=== PATIENT | female | born 1980 | race Hispanic/Latino ===

== ENCOUNTER 2017-03-18 10:17 | Inpatient (IN) | payer BC ==
[2017-03-18 11:36] LABS: Amnisure Test RUPTURE DETECTED (No Rupture)
[2017-03-18 11:41] VITALS: BMI 34.5
[2017-03-18] MEDS ORDERED: Ondansetron HCl/PF 4 MG/2 ML Vial IVP PRN (11:51)
[2017-03-18] MEDS ORDERED: Lidocaine 1% (PF) 30 ML VIAL SC PRN (11:51)
[2017-03-18] MEDS ORDERED: Promethazine HCl 25 MG/ML VIAL IM PRN (11:51)
[2017-03-18] MEDS ORDERED: Ibuprofen 800 MG TAB PO PRN (11:51)
[2017-03-18] MEDS ORDERED: LR / Pitocin 40 units/1000 ml 1,000 ML IV PRN (11:51)
[2017-03-18] MEDS ORDERED: Lactated Ringer's 1,000 ML IV SCH (12:00)
[2017-03-18] MEDS ORDERED: Penicillin G Potassium 5 MILL.UNITS in Sodium Chloride 0.9% 100 ML IVPB SCH (12:00)
[2017-03-18 12:08] LABS: Bilirubin Negative (Negative); Blood, Urine Negative (Negative); Glucose, Urine (Dipstick) Negative (Negative); Ketone, Urine 15 mg/dL (Negative); Nitrite Negative (Negative); Protein, Urine (Dipstick) Negative (Neg-Trace); Urobilinogen 0.2 mg/dL (0.2-1.0)
[2017-03-18 12:10] LABS: Bacteria/HPF None Seen HPF (None Seen); Hyaline Casts/LPF 0-3 HYALINE CAST LPF (0-3 Hyaline); RBC/HPF 0-3 HPF (0-3); Squamous Epithelial 0-3 HPF (0-3); WBC/HPF None Seen HPF (0-3)
[2017-03-18] MEDS ORDERED: Penicillin G Potassium 5 MILL.UNITS VIAL ONE ×2 (12:28→14:15)
--- NOTE | 2017-03-18 12:46 | PDOC.LDHP ---
Labor and Delivery H&P Chief complaint: loss of fluid HPI: Pt is a 36yo G1 @ 37.5 weeks who presents w PROM today at home. Current gestational age (weeks): 37 Due date: 04/03/17 Grav: 1 Para: 0 OB History Details: transfer of care at 31 weeks Current complications: none Abnormal US findings: No Current medications: none Previous surgical history: none Allergies/Adverse Reactions: Allergies Allergy/AdvReac Type Severity Reaction Status Date / Time No Known Allergies Allergy Verified 03/18/17 11:31 Social history: none - Physical Exam Vital signs reviewed and normal: yes General: resting Heart: RRR Lungs: nonlabored breathing Abdomen: gravid Extremeties: trace edema FHT: category 1 - Vaginal Exam cm dilated: 0 Effacement: 0% - OB Labs Blood type: A RH: negative Antibody Screen: negative HIV: negative RPR: negative HEPSAg: negative 1 hour GCT: positive 3 hour GTT: negative GBS: positive Rubella: immune - Assessment L&D Assessment: term rupture in membranes - Plan Plan: admit to L&D, cervical ripening, labor augmentation if indicated, GBS antibiotic prophylaxis, informed consent obtained, anesthesia consult for pain management -: A/P: 36yo G1 @ 37.5 w PROM, cytotec for cervical ripening/induction of labor. PCN ordered for GBS prophylaxis. FHT reassuring.
[2017-03-18] MEDS: Lactated Ringer's 1,000 ML IV SCH ×2 (13:15→23:10)
[2017-03-18 14:20] LABS: Hematocrit 35.7 % (36.0-47.0); Mean Platelet Volume 7.5 fL (7.4-10.4); Red Blood Cell (RBC) Count 3.65 mill/uL (4.20-5.40)
[2017-03-18] MEDS: Misoprostol 100 MCG TAB VAG SCH ×3 (14:30→21:00)
--- NOTE | 2017-03-18 16:48 | PDOC.LDPN ---
Labor & Delivery Progress Note - Subjective Subjective: comfortable - Objective Vital signs reviewed and normal: yes Abnormal vital signs: BP 140/76 noted General: resting FHT: category 1 - Assessment (1) 37 weeks gestation of Code(s): Z3A.37 - 37 WEEKS GESTATION OF Current Visit: Yes Status : Acute (2) Premature rupture of membranes Code(s): O42.90 - ANTON ROM, 7TH0 BETW RUPT & ONST LABR, UNSP WEEKS OF GEST Current Visit: Yes Status: Acute Plan: continue plan of care -: A/P: sp cytotec x 1 50mcg for PROM< plan to repeat soon for IOL.
[2017-03-18] MEDS: Penicillin G 2.5 MILL.units 2.5 MILL.UNITS in Premix Bag 1 BAG IVPB SCH ×3 (17:47→22:12)
[2017-03-19] MEDS ORDERED: LR 500 ML/Oxytocin 10 units 500 ML IV SCH ×2 (00:30→07:53)
[2017-03-19] MEDS: Penicillin G 2.5 MILL.units 2.5 MILL.UNITS in Premix Bag 1 BAG IVPB SCH ×4 (02:13→11:59)
[2017-03-19 06:53] LABS: Amnisure Test No Membranes Rupture (No Rupture)
[2017-03-19] MEDS: Lactated Ringer's 1,000 ML IV SCH ×3 (08:19→14:12)
--- NOTE | 2017-03-19 09:56 | ULT ---
BIOPHYSICAL PROFILE: Date: 03/19/17 HISTORY: Assess well-being. FINDINGS/IMPRESSION: There is a single, viable intrauterine . Tone: 2 Breathin Movement: 2 Amniotic Fluid: 2 Total Score: 8/8 heart rate: 128 beats/minute. position: Vertex. Placenta: Anterior. Amniotic fluid index: 18.1 cm. POS: [facility]
--- NOTE | 2017-03-19 10:04 | PDOC.EVN ---
Event Note - Event Note Event Note: HD2 Hospital course: pt was admitted yesterday w reported ROM at home, amnisure was positive, pt with closed cervix. Pt received 3 doses of cytotec as well as pitocin ordered overnight by [facility]. No fluid was noted yesterday during admission and an amnisure was ordered overnight and reported negative. This AM I did a speculum exam with a closed and long cervix, no pooling and negative ferning on slide I reviewed in the lab. Amnisure was repeated and is pending. While awaiting amnisure results the pt called out to RN that she started leaking again. RN reports a puddle on peripad and noting amniotic fluid actively leaking from the vagina, not the urethra. S: cramping, good FM O: VS WNL NAD Fundus NTTP FHT cat 1 [place] no ctx SVE closed A/P; Pt is approx 24 hrs w ROM, GBS + w abx, will receive one more dose of cytotec. If no initiation of labor with 4th dose/closed cervix will recommend CS for failed IOL with over 24 hours of ROM and 24hrs of cervical ripening. Cont PCN for GBS.
[2017-03-19 10:20] LABS: Amnisure Test No Membranes Rupture (No Rupture)
[2017-03-19] MEDS ORDERED: Misoprostol 100 MCG TAB ONE (11:27)
[2017-03-19] MEDS ORDERED: Misoprostol 100 MCG TAB PO SCH (11:30)
--- NOTE | 2017-03-19 11:32 | PDOC.LDPN ---
Labor & Delivery Progress Note - Subjective Subjective: comfortable - Objective Vital signs reviewed and normal: yes General: resting Dilation: closed - Assessment (1) 37 weeks gestation of Code(s): Z3A.37 - 37 WEEKS GESTATION OF Current Visit: Yes Status : Acute (2) Premature rupture of membranes Code(s): O42.90 - ANTON ROM, 7TH0 BETW RUPT & ONST LABR, UNSP WEEKS OF GEST Current Visit: Yes Status: Acute Plan: continue plan of care -: A/P: prolonged ROM, on PCN for GBS prophylaxis. Giving 4th cytotec now, discussed w pt ROM > 24 hrs w 3 cytotec and pitocin, offered CS for failed IOL vs one more dose of cytotec. Pt desires one more cytotec and agrees w plan of care for CS if no labor after 4th cytotec. FHT w +accel noted w SVE, will continue to monitor closely.
[2017-03-19] MEDS ORDERED: CEFAZOLIN/Water 2 GM/20 ML SYRINGE ONE (13:57)
[2017-03-19] MEDS ORDERED: Bicitra 30 ML UDCUP ONE (13:57)
--- NOTE | 2017-03-19 14:05 | PDOC.LDPN ---
Labor & Delivery Progress Note - Subjective Subjective: painful contractions, other (no PIH sx) - Objective Abnormal vital signs: mild range BP General: breathing through contractions Dilation: closed FHT: category 1 [place] contractions every: 2-3 mins - Assessment (1) 37 weeks gestation of Code(s): Z3A.37 - 37 WEEKS GESTATION OF Current Visit: Yes Status : Acute (2) Premature rupture of membranes Code(s): O42.90 - ANTON ROM, 7TH0 BETW RUPT & ONST LABR, UNSP WEEKS OF GEST Current Visit: Yes Status: Acute (3) Failed induction of labor Code(s): O61.9 - FAILED INDUCTION OF LABOR, UNSPECIFIED Current Visit: Yes Status: Acute Plan: other -: A/P: HD2 IOL for PROM, now >24 hrs ruptured w cervical ripening and cervix remains closed despite painful contractions and continued LOF. Discussed indication for primary CS, pt agrees to plan of care.
[2017-03-19] MEDS ORDERED: Ropivacaine 0.2% 550 ML 750 ML NERVE BLCK SCH (14:15)
[2017-03-19] MEDS ORDERED: Ropivacaine HCl/PF 750 ML in Premix Bag 1 BAG NERVE BLCK SCH (14:15)
[2017-03-19] MEDS ORDERED: CEFAZOLIN/Water 2 GM/20 ML SYRINGE SLOW IVP SCH (14:15)
[2017-03-19] MEDS ORDERED: Bicitra 30 ML UDCUP PO SCH (14:15)
[2017-03-19] MEDS ORDERED: Morphine PF 1 MG/ML SYR ONE (14:18)
[2017-03-19] MEDS ORDERED: Oxytocin 10 UNITS/ML VIAL ONE (14:19)
[2017-03-19] MEDS ORDERED: ePHEDrine/0.9% NaCl/PF SYRINGE 50 mg/10 ml ONE (14:19)
[2017-03-19] MEDS ORDERED: Fentanyl 100 MCG/2 ML VIAL ONE (14:19)
[2017-03-19] MEDS ORDERED: PHENYLEPHRINE-NS 100 MCG/ML 10 ML SYRINGE ONE (14:25)
[2017-03-19] MEDS ORDERED: Ondansetron HCl/PF 4 MG/2 ML Vial ONE (14:25)
[2017-03-19] MEDS ORDERED: Dexamethasone 4 mg/ml Vial ONE (14:25)
[2017-03-19] MEDS ORDERED: Ketorolac Tromethamine 30 MG/ML VIAL ONE ×2 (14:25→14:51)
[2017-03-19] MEDS ORDERED: Dexamethasone 20 MG/5 ML VIAL ONE (14:51)
[2017-03-19] MEDS ORDERED: Bupivacaine 0.25% HCL 30 ML VIAL ONE (15:08)
--- NOTE | 2017-03-19 15:21 | PDOC.OPDEL ---
OB Operative/Delivery Note Delivery Dr/Surgeon: Marshal Assist: Mark Pre-Delivery Diagnosis: ruptured membrane Procedure/Post Delivery Dx: primary low transverse CS (and placement of OnQ nerve block) Weeks gestation: 37 Anesthesia: spinal - Findings A Sex: female Weight: 6 lb 13 oz - 1 min: 8 - 5 min: 9 - Additional Findings/Plan findings: low transverse hysterotomy without extension, normal uterus, normal tubes, normal ovaries Estimated blood loss: 600ml Compilations/Other Findings: none Post delivery plan: routine recovery
[2017-03-19] MEDS ORDERED: Ondansetron HCl/PF 4 MG/2 ML Vial IVP PRN ×2 (18:52→19:52)
[2017-03-19] MEDS ORDERED: Promethazine HCl 25 MG/ML VIAL IM PRN ×2 (18:52→19:52)
[2017-03-19] MEDS ORDERED: diphenhydrAMINE 25 MG CAP PO PRN (18:52)
[2017-03-19] MEDS ORDERED: Acetaminophen/Codeine 30-300mg Tablet PO PRN ×2 (18:52)
[2017-03-19] MEDS ORDERED: Simethicone Chewable 80 MG TAB PO PRN (18:52)
[2017-03-19] MEDS ORDERED: Lanolin Ointment 7 GM TUBE TOP PRN (18:52)
[2017-03-19] MEDS ORDERED: Adacel (T-DAP) 0.5 ML VIAL IM ONE (18:52)
[2017-03-19] MEDS ORDERED: Bisacodyl 10 MG SUPP PR PRN (18:52)
--- NOTE | 2017-03-19 19:04 | OP ---
DATE OF PROCEDURE: 03/19/2017 PREOPERATIVE DIAGNOSES: 1. A 36-year-old G1, P0 at 37 weeks and 6 days. 2. Premature rupture of membranes greater than 24 hours. 3. GBS positive. 4. Failed induction of labor. POSTOPERATIVE DIAGNOSIS: Status post section. PROCEDURE PERFORMED: Primary low transverse section. SURGEON: Bakari Araya D.O. UTILITY BILL COLLECTOR: Amilcar Flores M.D. ANESTHESIA: Spinal per Dr. Buckley. COMPLICATIONS: None. ESTIMATED BLOOD LOSS: 600 mL. INTRAOPERATIVE FINDINGS: 1. Low transverse hysterotomy without extension. 2. Vigorous female , Apgars 8 and 9, weight 6 pounds 13 ounces to nursery. 3. Normal appearing fallopian tubes and ovaries with multiple small fibroids approximately 1-3 cm in side noted within the myometrium and uterine serosa 4. Surgical sites hemostatic. INDICATION FOR PROCEDURE: Ms. Del Rosario was admitted on the morning of 03/18/2017 with reported rupture of membranes at home. At the time of her admission, she had a positive AmniSure test. She underwent induction of labor and received 4 doses of Cytotec as well as Pitocin with her cervix remaining clos ed for over 24 hours of her induction. Of note, the patient did have a repeat AmniSure that was perf ormed during the night nurse that was negative. This test was done as the patient was not noted to h ave any leakage of fluid grossly noted after her arrival; however, she did have obvious gross rupture of membranes this morning by the nurse on exam by myself. PROCEDURE DETAILS: The patient was taken back to the OR with IV fluids running. Once she was in the OR, spinal anesthesia was obtained. The patient was then placed in dorsal supine position with a le ft lateral tilt. The abdomen was prepped and draped in normal fashion for section after a F oley catheter was inserted using sterile technique. Preoperative Ancef was administered and the ronan ent had SCDs on her bilateral lower extremities. Of note, prior to the procedure, the patient was co nsented for the placement of an ON-Q nerve block pump. Once the anesthesia was tested and found to b e adequate, a Pfannenstiel skin incision was made with the scalpel. The skin incision was carried do wn through the subcutaneous tissue to the fascia. Once the fascia was reached, it was incised in the midline and extended superior laterally using curved Lynch scissors. Analy clamps were placed on th e superior border of the fascia, which was sharply and bluntly dissected off the rectus abdominis mus cles. In similar fashion, Analy clamps were placed on the inferior border of the fascia, which was dissected down towards the pubic symphysis. The rectus muscles were bluntly in the midline ; the peritoneum was bluntly entered and stretched laterally. Metzenbaum scissors were used to allow adequate space for delivery of the infant's head at the peritoneal layer. Naeem O retractor was th en placed into the intraperitoneal cavity for retraction, visualization and protection of the wound. A bladder flap was created using Metzenbaum scissors and the bladder flap was dissected down away fr om the planned hysterotomy site. Hysterotomy was made with the scalpel. The uterus was bluntly ente red and extended superolaterally using the Raymond maneuver. The infant's head was delivered through th e incision. Clear fluid was noted. A loose nuchal cord was reduced. The infant's shoulders and bod y were delivered. Delayed cord clamping was achieved at approximately 30 seconds after delivery. Th e cord was doubly clamped and cut and the infant was handed off to special care nurses in attendance. Cord blood was collected. The placenta was delivered. The uterus was exteriorized, massaged to [facility], and then cleared of clot and debris with a clean, dry sponge. Multiple small uterine fibroids we re noted within the myometrium as well as uterine serosa. The uterus was returned to the abdominal c avity. The hysterotomy was closed with Monocryl suture in a running locked fashion. Additional figu re-of-eight stitch was placed at the right corner of the uterus with hemostasis noted. After the hys terotomy was closed, the hysterotomy and pericolic gutters were irrigated and suctioned dry. Hystero ericka was inspected and no areas of bleeding were noted. The Naeem O retractor was removed from the abdominal cavity. The hysterotomy was inspected again and noted to be dry. The peritoneal layer was reapproximated with chromic suture. Two ON-Q catheters were placed under direct visualization throug h the skin, subcutaneous tissue, and the fascia. Once the catheter tip musa the fascia, it was dir ected down towards the corners of the incision and the catheter was left in between the muscles and r ectus fascia. The rectus fascia was then closed with PDS suture, subcutaneous tissue was copiously i rrigated and dried. Any small areas of bleeding were controlled with Bovie cauterization. The ON-Q catheter tips were primed with Marcaine. The subcutaneous tissue was reapproximated with chromic sut ure. The skin was closed with 4-0 Monocryl and dressed with Dermabond dressing and the ON-Q catheter tips were fixed with adhesive anchors to the skin. The counts were correct. The patient tolerated the procedure well. The patient was cleaned, dried and taken to recovery room in good condition.
[2017-03-19] MEDS ORDERED: NO PO,IM,IV OR SC NARCOTICS FOR 12HR EXCEPT BY ANESTHESIA PO SCH (19:52)
[2017-03-19] MEDS ORDERED: Ketorolac Tromethamine 30 MG/ML VIAL IVP PRN (19:52)
[2017-03-19] MEDS ORDERED: diphenhydrAMINE 50 MG/ML VIAL IVP PRN (19:52)
[2017-03-19] MEDS ORDERED: Eucerin (Mineral Oil/Petrolatum,White) 30 gm Jar TOP PRN (19:52)
[2017-03-19] MEDS ORDERED: Promethazine HCl 25 MG SUPP PR PRN (19:52)
[2017-03-19] MEDS ORDERED: Naloxone HCl 0.4 mg/ml Vial IV PRN ×3 (19:52)
[2017-03-19] MEDS: Docusate (Surfak) 240 MG CAP PO SCH (23:20)
[2017-03-19] MEDS: Ibuprofen 800 MG TAB PO SCH (23:20)
[2017-03-19] MEDS: Ferrous Sulfate 325 MG TAB PO SCH (23:20)
[2017-03-20] MEDS: Lactated Ringer's 1,000 ML IV SCH (03:07)
[2017-03-20] MEDS ORDERED: Lactated Ringer's 1,000 ML IV SCH (03:45)
[2017-03-20 05:47] LABS: Hematocrit 28.3 % (36.0-47.0); Mean Platelet Volume 8.2 fL (7.4-10.4); Red Blood Cell (RBC) Count 2.85 mill/uL (4.20-5.40); White Blood Cell (WBC) Count 11.6 thou/uL (4.8-10.8)
--- NOTE | 2017-03-20 07:30 | PDOC.EVN ---
Event Note - Event Note Event Note: Delayed entry for : On 03/19/2017 (at approximately 1500 or so), I was oncchristos as the ObGyn in house physician and asked to assist with a primary CS with Dr Araya. A Primary CS ( LTCS) was performed by Marshal with me as the assistant in nursing. Single layer closure performed on hysterotomy without complication. OnQ pump placed without complication.Please see full note by Dr Araya. I discovered that my original CS assist note written in the chart was written in the incorrect chart and I have corrected that this morning at 0730.
[2017-03-20] MEDS ORDERED: Acetaminophen/Codeine 30-300mg Tablet PO PRN (07:45)
[2017-03-20] MEDS: Ferrous Sulfate 325 MG TAB PO SCH ×2 (09:08→21:49)
[2017-03-20] MEDS: Prenatal Vitamin 1 TAB PO SCH (09:09)
[2017-03-20] MEDS: Docusate (Surfak) 240 MG CAP PO SCH ×2 (09:09→21:49)
--- NOTE | 2017-03-20 09:55 | PDOC.PP ---
Post Progress Note Post Day #: 1 Subjective: minimal discomfort, only concern is left OnQ pump leaking. Sb diet. PO intake tolerated: yes Flatus: yes Ambulation: yes Vital Signs (12 hours) Temp Pulse Resp BP Pulse Ox 03/20/17 08:28 97.9 F 76 20 121/81 03/20/17 08:00 97.9 F 76 20 03/20/17 05:45 97.9 F 83 16 03/20/17 05:40 97.9 F 83 16 118/81 98 03/20/17 01:40 98.1 F 77 18 117/65 98 03/19/17 22:10 16 123/74 Weight Weight 189 lb - Physical Examination Respiratory: non-labored breathing Abdominal: no distention, appropriately TTP Fundus firm & at: below umb Extremities: negative homans (B) Skin: CS incision dry & intact, no rash (On Q left port leaking) Psychiatric: normal affect Result Diagrams: 03/20/17 05:11 Additional Labs: Post Labs Blood Type A NEGATIVE 03/18/17 13:10 Hep Bs Antigen Non-Reactive S/CO (NonReactive) 03/18/17 13:10 (1) 37 weeks gestation of Code(s): Z3A.37 - 37 WEEKS GESTATION OF Status: Acute (2) Premature rupture of membranes Code(s): O42.90 - ANTON ROM, 7TH0 BETW RUPT & ONST LABR, UNSP WEEKS OF GEST Status: Acute (3) Failed induction of labor Code(s): O61.9 - FAILED INDUCTION OF LABOR, UNSPECIFIED Status: Acute - Assessment/Plan POD1, doing well, meeting goals after LTCS for failed IOL and prolonged ROM> Plan to remove left OnQ port this AM.
[2017-03-20] MEDS: Ibuprofen 800 MG TAB PO SCH ×4 (14:21→22:32)
[2017-03-21] MEDS: Ibuprofen 800 MG TAB PO SCH ×3 (04:31→21:06)
[2017-03-21] MEDS: Acetaminophen/Codeine 30-300mg Tablet PO PRN ×2 (04:31→15:05)
--- NOTE | 2017-03-21 08:27 | PDOC.PP ---
Post Progress Note Post Day #: 2 Subjective: post op goals met, working through nursing issues w LC, most concerns are social regarding FMLA paperwork PO intake tolerated: yes Flatus: yes Ambulation: yes Vital Signs (12 hours) Temp Pulse Resp BP Pulse Ox 03/21/17 08:06 97.9 F 81 20 136/78 03/21/17 00:25 98.0 F 79 20 132/79 03/20/17 21:00 97.6 F 78 20 137/88 97 Weight Weight 189 lb - Physical Examination General: NAD Respiratory: non-labored breathing Abdominal: no distention (mild bruising in midline) Extremities: negative homans (B) Skin: no rash Neurological: no gross focal deficits Psychiatric: A&Ox3, normal affect Result Diagrams: 03/20/17 05:11 Additional Labs: Post Labs Blood Type A NEGATIVE 03/18/17 13:10 Hep Bs Antigen Non-Reactive S/CO (NonReactive) 03/18/17 13:10 (1) 37 weeks gestation of Code(s): Z3A.37 - 37 WEEKS GESTATION OF Status: Acute (2) Premature rupture of membranes Code(s): O42.90 - ANTON ROM, 7TH0 BETW RUPT & ONST LABR, UNSP WEEKS OF GEST Status: Acute (3) Failed induction of labor Code(s): O61.9 - FAILED INDUCTION OF LABOR, UNSPECIFIED Status: Acute - Assessment/Plan POD#2, doing well, goals met, continue care and help w nursing. Instructed pt to fax FMLA paperwork to the office. DC home tomorrow.
[2017-03-21] MEDS: Penicillin G 2.5 MILL.units 2.5 MILL.UNITS in Premix Bag 1 BAG IVPB SCH (08:47)
[2017-03-21] MEDS: Ferrous Sulfate 325 MG TAB PO SCH ×2 (09:57→21:06)
[2017-03-21] MEDS: Prenatal Vitamin 1 TAB PO SCH (09:57)
[2017-03-21] MEDS: Docusate (Surfak) 240 MG CAP PO SCH ×2 (09:58→21:06)
[2017-03-22] MEDS: Acetaminophen/Codeine 30-300mg Tablet PO PRN (00:11)
[2017-03-22] MEDS: Ibuprofen 800 MG TAB PO SCH ×3 (06:29→21:28)
--- NOTE | 2017-03-22 08:09 | PRG ---
DATE OF SERVICE: 03/22/2017 SUBJECTIVE: The patient is postoperative day #3 status post a primary lower transverse sect ion for arrest of labor and prolonged rupture of membranes. The patient reports that she is tolerati ng p.o., voiding on her own, ambulating, having decreased lochia and good pain control. She has been given noticed today that her baby will not be discharged due to elevated bilirubin levels. PHYSICAL EXAMINATION: VITAL SIGNS: Today blood pressure is 149/81, temperature 98.4, pulse of 87, respiratory rate of 20. GENERAL: She appears to be in no acute distress. She is alert and oriented, and cooperative and ple asant to interact with. HEAD: Normocephalic, atraumatic. ABDOMEN: Soft, appropriately tender. Incision is clean, dry, and intact with suture. EXTREMITIES: Nontender, but has some edema bilaterally. ASSESSMENT AND PLAN: The patient is a 36-year-old female who is postoperative day #3 status post mariann sonia for arrest of labor and prolonged rupture of membranes. The patient will continue rou cruzito postoperative care as baby will not be discharged and anticipate discharge tomorrow for mom and baby.
[2017-03-22] MEDS: Prenatal Vitamin 1 TAB PO SCH (09:43)
[2017-03-22] MEDS: Docusate (Surfak) 240 MG CAP PO SCH ×2 (09:44→21:28)
[2017-03-22] MEDS: Ferrous Sulfate 325 MG TAB PO SCH ×2 (09:44→21:27)
[2017-03-23] MEDS: Ibuprofen 800 MG TAB PO SCH ×2 (05:09→14:11)
[2017-03-23 08:55] VITALS: BP 153/82; TEMP 98.5
[2017-03-23] MEDS: Prenatal Vitamin 1 TAB PO SCH (09:32)
[2017-03-23] MEDS: Docusate (Surfak) 240 MG CAP PO SCH (09:33)
[2017-03-23] MEDS: Ferrous Sulfate 325 MG TAB PO SCH (09:33)
== END 2017-03-23 16:00 | disposition home or self-care (01) | DRG 766 ==
LOC: L&D/OP 10:17 → L&D 11:59 → 3SW 03-19 18:18
PROVIDERS: ADMIT Obstetrics & Gynecology; ATTEND Obstetrics & Gynecology
PROC: 3E0P3VZ Introduction of Hormone into Female Reproductive, Percutaneous Approach (ICD-10-PCS; 2017-03-18)
PROC: 3E0P7VZ Introduction of Hormone into Female Reproductive, Via Natural or Artificial Opening (ICD-10-PCS; 2017-03-18)
PROC: 10D00Z1 Extraction of Products of Conception, Low, Open Approach (ICD-10-PCS; principal; 2017-03-19)
DX: O42.12 Full-term premature rupture of membranes, onset of labor more than 24 hours following rupture (principal); D25.9 Leiomyoma of uterus, unspecified; Z3A.37 37 weeks gestation of pregnancy; Z37.0 Single live birth; O99.824 Streptococcus B carrier state complicating childbirth; O61.0 Failed medical induction of labor; O69.81X0 Labor and delivery complicated by cord around neck, without compression, not applicable or unspecified; O34.13 Maternal care for benign tumor of corpus uteri, third trimester
CPT/HCPCS: 36415; 76819; 81001; 84112; 85027; 86780; 86850; 86870; 86900; 86901; 86922; 87340; 87480; 87510; 87660; J0595; J1100; J1885; J2274; J2405; J2540; J2590; J2795; J3010; J7120; S0020